=== PATIENT | female | born 1955 | race Caucasian/White ===

== ENCOUNTER 2017-08-28 13:40 | Emergency (ER) | payer MEDICARE, BC ==
[~2017-08-28] VITALS: Ht 162.6 cm; Wt 72.0 kg
[2017-08-28 13:41] VITALS: BP 161/71; PULSE 91; RESP 16; TEMP 98.2; O2SAT 98
[2017-08-28] MEDS ORDERED: KETOROLAC TROMETHAMINE 60 MG/2 ML (IM) VIAL IM ONE (14:30)
[2017-08-28] MEDS ORDERED: SUBO8MIS SL (14:37)
[2017-08-28] MEDS ORDERED: ADDE10 PO (14:37)
[2017-08-28] MEDS ORDERED: [UNRECOGNIZED DRUG - OTHER] PO (14:37)
[2017-08-28] MEDS ORDERED: ALPR0.5T3 PO (14:37)
[2017-08-28] MEDS ORDERED: ADDE30XR PO (14:37)
[2017-08-28] MEDS ORDERED: VENL1CAP38 PO (14:37)
[2017-08-28] MEDS ORDERED: EZET10 PO (14:37)
[2017-08-28] MEDS ORDERED: [UNRECOGNIZED DRUG - CODE] PO (14:37)
--- NOTE | 2017-08-28 14:41 | PD ---
HPI Chief Complaint: Hip Injury Time Seen by Provider: 14:05 Travel History International Travel<30 days: No Contact w/Intl Traveler<30days: No Traveled to known affect area: No History of Present Illness HPI 62-year-old female here for evaluation of left hip pain. The patient states that on 08/24/17 the patient was lifting a heavy object and turned to the side. She immediately experienced left hip pain. She states that the pain has been ongoing and seems to be worsening. She denies direct trauma. She has been taking Advil with only mild relief of symptoms. She has history of Percocet/ opioid abuse and is currently on Suboxone for this. She denies bowel or bladder incontinence or retention. No back pain. No abdominal pain. She does have some paresthesias to her left anterior thigh. PFSH Past Medical History ADHD: Yes Anxiety: Yes Depression: Yes Cancer: Yes (breast ) Insomnia: Yes Past Surgical History Gynecologic Surgery: Yes Mastectomy: Yes Social History Alcohol Use: No Tobacco Use: Yes Substance Use: No Allergies-Medications (Allergen,Severity, Reaction): Coded Allergies: No Known Allergies (Unverified , 08/28/17) Reported Meds & Prescriptions Reported Meds & Active Scripts Active Reported Nuvigil (Armodafinil) 50 Mg Tab 100 Mg PO DAILY Adderall (Amphetamine-Dextroamphetamine) 10 Mg Tab 10 Mg PO DIRECTED Take 10 mg in the morning & 5 mg (1/2 tab) at noon. Adderall Xr 24 HR (Amphetamine/Dextroamphetamine) 30 Mg Cap 30 Mg PO TID Once daily in the morning. Alprazolam 0.5 Mg Tab 0.5 Mg PO HS PRN Suboxone Sublingual Film (Buprenorphine-Naloxone Sublingual Film) 8-2 Mg Film 1 Film SL BID Unique ID number required: [cholesteril med ] PO DAILY Zetia (Ezetimibe) 10 Mg Tab 10 Mg PO DAILY Effexor XR 24 HR (Venlafaxine HCl) 37.5 Mg Cap 37.5 Mg PO DAILY Review of Systems Except as stated in HPI: all other systems reviewed are Neg Physical Exam Narrative GENERAL: Well-developed, well-nourished, comfortable, no apparent distress. SKIN: Focused skin assessment warm/dry. No rash. HEAD: Atraumatic. Normocephalic. EYES: Pupils equal and round. No scleral icterus. No injection or drainage. ENT: No nasal bleeding or discharge. Mucous membranes pink and moist. NECK: Trachea midline. No JVD. CARDIOVASCULAR: Regular rate and rhythm. No murmur appreciated. Bilateral dorsalis pedis pulses are brisk and equal. RESPIRATORY: No accessory muscle use. Clear to auscultation. Breath sounds equal bilaterally. GASTROINTESTINAL: Abdomen soft, non-tender, nondistended. No hernias. MUSCULOSKELETAL: No obvious deformities. No clubbing. No cyanosis. No edema. No midline vertebral step-off or tenderness. There is moderate left anterior hip tenderness. No warmth or erythema. Bilateral lower extremities are without rotational deformities or shortening. Normal range of motion in bilateral lower extremities. All compartments in bilateral lower extremities are supple. NEUROLOGICAL: Awake and alert. No obvious cranial nerve deficits. Motor grossly within normal limits. Normal speech. Normal sensation in bilateral lower extremities. Great toe extension present bilaterally. PSYCHIATRIC: Appropriate mood and affect; insight and judgment normal. Data Data Last Documented VS Vital Signs Date Time Temp Pulse Resp B/P (MAP) Pulse Ox O2 Delivery O2 Flow Rate FiO2 08/28/17 13:41 98.2 91 16 161/71 (101) 98 Orders Orders Ketorolac Inj (Toradol Inj) (08/28/17 14:30) Hip, Uni(Ap&Lat) W Ap Pelvis (08/28/17 ) Ct Pelvis W/O Iv Contrast (08/28/17 ) [facility] Medical Decision Making Medical Screen Exam Complete: Yes Emergency Medical Condition: Yes Differential Diagnosis Groin strain, hip fracture, dislocation unlikely Narrative Course Vital signs reviewed. Left hip x-ray: CONCLUSION: Negative CT pelvis: CONCLUSION: Negative for fracture or joint effusion. Patient is resting comfortably. She was made aware of all findings. There are no signs of infection. She is stable for discharge home with outpatient follow- up with her primary care physician this week. She was advised on when to return to the emergency department patient verbalizes understanding and agreement with plan. Diagnosis Primary Impression: Strain of left inguinal muscle Qualified Codes: S39.013A - Strain of muscle, fascia and tendon of pelvis, initial encounter Referrals: Primary Care Physician 3 days Additional Instructions: Follow-up with your primary care physician this week. Return to the emergency department for worsening symptoms or any other concerns. Disposition: 01 DISCHARGE HOME Condition: Stable Obdulio Cheng MD Aug 28, 2017 14:41
--- NOTE | 2017-08-28 15:51 | RADRPT ---
EXAM DATE/TIME: 08/28/2017 15:22 [facility] COMPARISON: No previous studies available for comparison. INDICATIONS : Pain in left hip, no known trauma. MEDICAL HISTORY : None. SURGICAL HISTORY : None. ENCOUNTER: Initial ACUITY: 4 - 6 days PAIN SCORE: 10/10 LOCATION: Left hip and pelvis FINDINGS: Examination of the left hip was performed with AP Pelvis. The primary and secondary trabecular patte rn of the femoral neck is intact. The hip joint is of normal width without significant sclerosis or bony hypertrophy. The acetabulum is grossly intact. CONCLUSION: Negative Tee Alegria MD FACR on August 28, 2017 at 15:40 Board Certified Radiologist. This report was verified electronically.
--- NOTE | 2017-08-28 17:52 | RADRPT ---
EXAM DATE/TIME: 08/28/2017 17:21 [facility] COMPARISON: No previous studies available for comparison. INDICATIONS : Left hip pain for four days. ORAL CONTRAST: No oral contrast ingested. RADIATION DOSE: 10.95 CTDIvol (mGy) MEDICAL HISTORY : Carcinoma, breast. SURGICAL HISTORY : None. ENCOUNTER: Initial ACUITY: 1 day PAIN SCALE: 10/10 LOCATION: Left hip TECHNIQUE: Volumetric scanning of the pelvis was performed. Using automated exposure control and adjustment of the mA and/or kV according to patient size, radiation dose was kept as low as reasonably achievable t o obtain optimal diagnostic quality images. DICOM format image data is available electronically for review and comparison. FINDINGS: BOWEL/MESENTERY: The visualized small and large bowel demonstrate no acute abnormality. There is no free fluid. BLADDER: There is no wall thickening or mass. RETROPERITONEUM: There is no aneurysm or lymphadenopathy. REPRODUCTIVE: Within normal limits. INGUINAL: There is no lymphadenopathy or hernia. MUSCULOSKELETAL: Within normal limits for patient age. CONCLUSION: Negative for fracture or joint effusion. Tee Alegria MD FACR on August 28, 2017 at 17:49 Board Certified Radiologist. This report was verified electronically.
== END 2017-08-28 19:10 | disposition home or self-care (01) ==
LOC: NEPE 13:40
DX: S39.013A Strain of muscle, fascia and tendon of pelvis, initial encounter (principal); X50.0XXA Overexertion from strenuous movement or load, initial encounter; F90.9 Attention-deficit hyperactivity disorder, unspecified type; F32.9 Major depressive disorder, single episode, unspecified; F41.9 Anxiety disorder, unspecified; G47.00 Insomnia, unspecified; Z79.891 Long term (current) use of opiate analgesic; Z85.3 Personal history of malignant neoplasm of breast; Z72.0 Tobacco use
CPT/HCPCS: 72192; 73502; 96372; 99284; J1885

== ENCOUNTER 2017-11-08 07:38 | Inpatient (IN) | payer MEDICARE, BC ==
[~2017-11-08] VITALS: Ht 162.6 cm; Wt 79.7 kg
[2017-11-08] VITALS (11 sets, daily range): BP systolic 115–168; BP diastolic 58–81; PULSE 72–98; RESP 16–28; TEMP 98.1–99.8; O2SAT 79–98
[~2017-11-08 07:38] MED LIST: ADDE10 PO; ADDE30XR PO; ALPR0.5T3 PO; EZET10 PO; SUBO8MIS SL; VENL1CAP38 PO; [UNRECOGNIZED DRUG - CODE] PO; [UNRECOGNIZED DRUG - OTHER] PO
--- NOTE | 2017-11-08 08:56 | PD ---
HPI Chief Complaint: Respiratory Symptoms Time Seen by Provider: 08:44 Travel History International Travel<30 days: No Contact w/Intl Traveler<30days: No Traveled to known affect area: No History of Present Illness HPI 62-year-old female complains of coughing and wheezing and shortness of breath. Patient is a smoker. Patient has history of reactive airway disease. Patient has albuterol nebulizer at home. Patient started having cough and congestion wheezing started 3 days ago. Patient denies any chest pain or fever. Patient denies abdominal pain. Patient denies any nausea vomiting diarrhea. Patient is on Suboxone and Xanax at home. Patient also on Adderall. Patient status post double mastectomy and with revisions subsequently. Patient is on chronic pain medication. PFSH Past Medical History ADHD: Yes Anxiety: Yes Depression: Yes Cancer: Yes (breast ) Diminished Hearing: No Insomnia: Yes Influenza Vaccination: Yes Past Surgical History Genitourinary Surgery: Yes (PROLASPED UTERUS,RECTUM 2008) Gynecologic Surgery: Yes Mastectomy: Yes (DOUBLE 2000) Social History Alcohol Use: No Tobacco Use: Yes (PPD ) Substance Use: No Allergies-Medications (Allergen,Severity, Reaction): Coded Allergies: No Known Allergies (Unverified , 11/08/17) Reported Meds & Prescriptions Reported Meds & Active Scripts Active Reported Nuvigil (Armodafinil) 50 Mg Tab 100 Mg PO DAILY Adderall (Amphetamine-Dextroamphetamine) 10 Mg Tab 10 Mg PO DIRECTED Take 10 mg in the morning & 5 mg (1/2 tab) at noon. Adderall Xr 24 HR (Amphetamine/Dextroamphetamine) 30 Mg Cap 30 Mg PO TID Once daily in the morning. Alprazolam 0.5 Mg Tab 0.5 Mg PO HS PRN Suboxone Sublingual Film (Buprenorphine-Naloxone Sublingual Film) 8-2 Mg Film 1 Film SL BID Unique ID number required: Zetia (Ezetimibe) 10 Mg Tab 10 Mg PO DAILY Effexor XR 24 HR (Venlafaxine HCl) 37.5 Mg Cap 37.5 Mg PO DAILY Review of Systems General / Constitutional: No: Fever Eyes: No: Visual changes HENT: No: Headaches Cardiovascular: No: Chest Pain or Discomfort Respiratory: Positive: Cough, Shortness of Breath, Wheezing Gastrointestinal: No: Abdominal Pain Genitourinary: No: Dysuria Musculoskeletal: No: Pain Skin: No Rash Neurologic: No: Weakness Psychiatric: No: Depression Endocrine: No: Polydipsia Hematologic/Lymphatic: No: Easy Bruising Physical Exam Narrative GENERAL: Well-nourished, well-developed patient. SKIN: Focused skin assessment warm/dry. HEAD: Normocephalic. EYES: No scleral icterus. No injection or drainage. NECK: Supple, trachea midline. No JVD or lymphadenopathy. CARDIOVASCULAR: Regular rate and rhythm without murmurs, gallops, or rubs. RESPIRATORY: Patient has moderate expiratory wheezes bilaterally. Few rhonchi at the bases. GASTROINTESTINAL: Abdomen soft, non-tender, nondistended. MUSCULOSKELETAL: No cyanosis, or edema. BACK: Nontender without obvious deformity. No CVA tenderness. Neurologic exam: Patient with mild lethargy however answer questions appropriately. Patient moves all extremity well. No obvious focal neurological deficit. Data Data Last Documented VS Vital Signs Date Time Temp Pulse Resp B/P (MAP) Pulse Ox O2 Delivery O2 Flow Rate FiO2 11/08/17 09:30 79 Room Air 11/08/17 09:00 4.00 11/08/17 08:40 99 26 11/08/17 08:35 99.5 Orders Orders Complete Blood Count With Diff (11/08/17 08:50) Comprehensive Metabolic Panel (11/08/17 08:50) Urinalysis - C+S If Indicated (11/08/17 08:50) Influenzae A/B Antigen (11/08/17 08:50) Blood Culture (11/08/17 08:50) Iv Access Insert/Monitor (11/08/17 08:50) Electrocardiogram (11/08/17 08:50) Ecg Monitoring (11/08/17 08:50) Oximetry (11/08/17 08:50) Oxygen Administration (11/08/17 08:50) Chest, Single Ap (11/08/17 08:50) Sodium Chloride 0.9% Flush (Ns Flush) (11/08/17 09:00) Methylprednisolone So Succ Inj (Solumedr (11/08/17 09:00) Albuterol-Ipratropium Neb (Duoneb Neb) (11/08/17 09:00) Labs Laboratory Tests Test 11/08/17 09:17 11/08/17 09:30 White Blood Count 10.9 TH/MM3 Red Blood Count 4.30 MIL/MM3 Hemoglobin 13.1 GM/DL Hematocrit 38.1 % Mean Corpuscular Volume 88.7 FL Mean Corpuscular Hemoglobin 30.4 PG Mean Corpuscular Hemoglobin Concent 34.3 % Red Cell Distribution Width 13.4 % Platelet Count 300 TH/MM3 Mean Platelet Volume 7.3 FL Neutrophils (%) (Auto) 77.9 % Lymphocytes (%) (Auto) 8.8 % Monocytes (%) (Auto) 12.5 % Eosinophils (%) (Auto) 0.7 % Basophils (%) (Auto) 0.1 % Neutrophils # (Auto) 8.4 TH/MM3 Lymphocytes # (Auto) 1.0 TH/MM3 Monocytes # (Auto) 1.4 TH/MM3 Eosinophils # (Auto) 0.1 TH/MM3 Basophils # (Auto) 0.0 TH/MM3 CBC Comment DIFF FINAL Differential Comment Blood Urea Nitrogen 7 MG/DL Creatinine 0.56 MG/DL Random Glucose 119 MG/DL Total Protein 7.7 GM/DL Albumin 2.6 GM/DL Calcium Level 9.3 MG/DL Alkaline Phosphatase 174 U/L Aspartate Amino Transf (AST/SGOT) 22 U/L Alanine Aminotransferase (ALT/SGPT) 27 U/L Total Bilirubin 0.4 MG/DL Sodium Level 134 MEQ/L Potassium Level 3.3 MEQ/L Chloride Level 93 MEQ/L Carbon Dioxide Level 32.0 MEQ/L Anion Gap 9 MEQ/L Estimat Glomerular Filtration Rate 110 ML/MIN Urine Color YELLOW Urine Turbidity HAZY Urine pH 6.5 Urine Specific Spencer 1.033 Urine Protein 300 mg/dL Urine Glucose (UA) NEG mg/dL Urine Ketones 40 mg/dL Urine Occult Blood MOD Urine Nitrite NEG Urine Bilirubin NEG Urine Urobilinogen 4.0 MG/DL Urine Leukocyte Esterase NEG Urine RBC 9 /hpf Urine WBC 7 /hpf Urine Squamous Epithelial Cells 5 /hpf Urine Bacteria RARE /hpf Urine Hyaline Casts 33 /lpf Urine Mucus MANY /lpf Microscopic Urinalysis Comment CULT NOT INDICATED MDM Medical Decision Making Medical Screen Exam Complete: Yes Emergency Medical Condition: Yes Interpretation(s) 10:19 AM. Last Impressions Chest X-Ray 11/08/17 0850 Signed Impressions: Service Date/Time: Wednesday, November 08, 2017 08:57 - CONCLUSION: Right middle lobe airspace disease suspected. Robby Prater MD 10:19 AM. CBC WBC 10.9. Hemoglobin 13.1 hematocrit 30.1. 77 neutrophil. Sodium 134. Potassium 3.3. Chloride 93. Alkaline phosphatase 174. UA positive for WBC RBC and bacteria. Differential Diagnosis Differential diagnosis including acute exacerbation of reactive airway disease, URI, bronchitis, pneumonia, PE, pneumothorax. Narrative Course 62-year-old female complained of coughing wheezing and shortness of breath. Patient is a smoker. History of reactive airway disease. Albuterol with Atrovent unit dose treatment 3. Solu-Medrol 125 mg IV. Rocephin 1 g IV. Zithromax 500 mg IV. Diagnosis Primary Impression: Pneumonia Qualified Codes: J18.1 - Lobar pneumonia, unspecified organism Additional Impression: Reactive airway disease with acute exacerbation Qualified Codes: J45.51 - Severe persistent asthma with (acute) exacerbation Admitting Information Admitting Physician Requests: Admit Brian Worrell MD Nov 08, 2017 08:56
[2017-11-08] MEDS ORDERED: methylPREDNISolone SOD SUCC 125 MG/2 ML VIAL IV PUSH ONE (09:00)
[2017-11-08] MEDS: RESP: ALBUTEROL 2.5 MG/IPRATROPIUM 0.5 MG NEB (SCH) INH ×4 (09:00→20:23)
[2017-11-08] MEDS ORDERED: SODIUM CHLORIDE 0.9% FLUSH 10 ML FLUSH IVF PRN (09:00)
--- NOTE | 2017-11-08 09:14 | RADRPT ---
EXAM DATE/TIME: 11/08/2017 08:57 [facility] COMPARISON: No previous studies available for comparison. INDICATIONS : Cough, congestion and shortness of breath. MEDICAL HISTORY : Carcinoma, breast. SURGICAL HISTORY : Mastectomy, bilateral. ENCOUNTER: Initial ACUITY: 4 - 6 days PAIN SCORE: 0/10 LOCATION: Bilateral chest FINDINGS: Mild hyperinflation. There is patchy density in the right lung base medially partially silhouetting t he right heart border suspect for right middle lobe airspace disease. Left lung is clear. Osseous str uctures are intact. CONCLUSION: Right middle lobe airspace disease suspected. Robby Prater MD on November 08, 2017 at 9:11 Board Certified Radiologist. This report was verified electronically.
[2017-11-08 09:51] LABS: AUTOMATED NEUTROPHIL # 8.4 TH/MM3 (1.8-7.7); BASOPHIL % 0.1 % (0.0-2.0); EOSINOPHIL # 0.1 TH/MM3 (0-0.4); EOSINOPHIL % 0.7 % (0.0-4.0); HEMATOCRIT 38.1 % (35.0-46.0); HEMOGLOBIN 13.1 GM/DL (11.6-15.3); LYMPH % 8.8 % (9.0-44.0); MEAN CELL VOLUME 88.7 FL (80.0-100.0); MEAN CORPUSCULAR HEMOGLOBIN 30.4 PG (27.0-34.0); MEAN CORPUSCULAR HGB CONC 34.3 % (32.0-36.0); MEAN PLATELET VOLUME 7.3 FL (7.0-11.0); MONO % 12.5 % (0.0-8.0); MONOCYTE # 1.4 TH/MM3 (0-0.9); NEUT % 77.9 % (16.0-70.0); PLATELET COUNT 300 TH/MM3 (150-450); RED CELL DISTRIBUTION WIDTH 13.4 % (11.6-17.2); WHITE BLOOD COUNT 10.9 TH/MM3 (4.0-11.0)
[2017-11-08 10:11] LABS: ALKALINE PHOSPHATASE 174 U/L (45-117); TOTAL BILIRUBIN ADULT 0.4 MG/DL (0.2-1.0); TOTAL PROTEIN 7.7 GM/DL (6.4-8.2)
[2017-11-08 10:12] LABS: BACTERIA, URINE RARE /hpf; BLOOD, URINE MOD (NEG); GLUCOSE,URINE NEG (NEG); HYALINE CAST, URINE 33 /lpf (RARE); KETONE, URINE 40 mg/dL (NEG); MUCUS URINE MANY /lpf (OCC); NITRITE,URINE NEG (NEG); PH, URINE 6.5 (5.0-8.5); SQUAMOUS EPITHELIAL CELL URINE 5 /hpf (0-5); URINE COLOR YELLOW (YELLW/STRAW); URINE LEUKOCYTE ESTERASE NEG (NEG)
[2017-11-08 10:14] LABS: BILIRUBIN, URINE NEG (NEG)
[2017-11-08 10:18] LABS: ALBUMIN 2.6 GM/DL (3.4-5.0); ALT (GPT) 27 U/L (10-53); AST (GOT) 22 U/L (15-37); BLOOD UREA NITROGEN 7 MG/DL (7-18); CALCIUM 9.3 MG/DL (8.5-10.1); CHLORIDE 93 MEQ/L (98-107); CREATININE 0.56 MG/DL (0.50-1.00); GLOMERULAR FILTRATION RATE 110 ML/MIN (>89); GLUCOSE,RANDOM 119 MG/DL (74-106); SODIUM (NA) 134 MEQ/L (136-145)
[2017-11-08] MEDS ORDERED: ACETAMINOPHEN 325 MG TAB PO PRN (11:15)
[2017-11-08] MEDS ORDERED: guaiFENesin/DEXTROMETHORPHAN 200 MG/20 MG/10 ML CUP PO PRN (11:15)
[2017-11-08] MEDS ORDERED: RESP: ALBUTEROL 2.5 MG/IPRATROPIUM 0.5 MG NEB (PRN) INH (11:15)
[2017-11-08] MEDS ORDERED: SODIUM CHLORIDE 0.9% FLUSH 10 ML FLUSH IV FLUSH PRN (11:15)
[2017-11-08] MEDS ORDERED: ONDANSETRON HCL 4 MG/2 ML VIAL IV PUSH PRN (11:15)
[2017-11-08] MEDS ORDERED: POTASSIUM CHLORIDE 25 MEQ EFFERVESCENT TAB PO ONE (11:15)
--- NOTE | 2017-11-08 13:08 | HHI.HP ---
[facility] Noel Becerra MD Admission Diagnosis Pneumonia. Acute exacerbation reactive airway disease. Hypoxemia. Diagnoses: Chief Complaint: Shortness of breath Travel History International Travel<30 Days: No Contact w/Intl Traveler <30 Da: No Traveled to Known Affected Are: No History of Present Illness This is a 62-year-old female with no comorbidities other than history of breast cancer in remission and possible COPD who presented with shortness of breath. Patient has been in her usual state of health until 3 days ago when she started having a nonproductive cough associated with wheezing and mild shortness of breath. Shortness of breath became worse hence the patient decided to go to the emergency department today. Patient denies any fever, chills, nausea, vomiting, headache, chest pain, leg edema or palpitations. Of note, she has been visiting her grandson who has been diagnosed with a cough but was not placed on any antibiotic about 1 week ago. Patient has been smoking 3 partners of a pack for the last 45 years but has stopped 3 months ago. She has never been diagnosed with COPD though patient was placed on nebulizer as needed. She used to give herself nebulization treatments but she used up all her Nebules 2 days ago. Review of Systems ROS Limitations: Other (All other pertinent systems were reviewed and are negative.) Past Family Social History Past Medical History History of breast cancer status post mastectomy ? COPD Past Surgical History Bilateral radical mastectomy Surgery for uterine and rectal prolapse Reported Medications Nuvigil (Armodafinil) 50 Mg Tab 100 Mg PO DAILY Adderall (Amphetamine-Dextroamphetamine) 10 Mg Tab 10 Mg PO DIRECTED Take 10 mg in the morning & 5 mg (1/2 tab) at noon. Adderall Xr 24 HR (Amphetamine/Dextroamphetamine) 30 Mg Cap 30 Mg PO TID Once daily in the morning. Alprazolam 0.5 Mg Tab 0.5 Mg PO HS PRN Suboxone Sublingual Film (Buprenorphine-Naloxone Sublingual Film) 8-2 Mg Film 1 Film SL BID Unique ID number required: Zetia (Ezetimibe) 10 Mg Tab 10 Mg PO DAILY Effexor XR 24 HR (Venlafaxine HCl) 37.5 Mg Cap 37.5 Mg PO DAILY Allergies: Coded Allergies: No Known Allergies (Unverified , 11/08/17) Family History Prominent history of breast cancer in the family Social History Smokes three quarters of a pack a day for the last 45 years, stopped 3 months ago: no significant alcohol use Physical Exam Vital Signs Vital Signs Date Time Temp Pulse Resp B/P (MAP) Pulse Ox O2 Delivery O2 Flow Rate FiO2 11/08/17 11:46 11/08/17 10:27 93 20 129/58 (81) 94 Nasal Cannula 3.00 11/08/17 09:30 79 Room Air 11/08/17 09:00 98 Nasal Cannula 4.00 11/08/17 08:40 99 26 93 Nasal Cannula 3.00 11/08/17 08:35 92 Nasal Cannula 3.00 11/08/17 08:35 99.5 77 28 153/69 (97) 80 Room Air 11/08/17 07:54 99.8 98 18 168/81 (110) 94 Physical Exam Not in distress, well-nourished, coughing. PERRL, pink conjunctiva without injection, anicteric Nose without bleeding Supple neck Normal rate and regular rhythm, no murmurs gallops or rubs appreciated. Occasional wheezing, crackles in the right base and rhonchi bilaterally. Normal bowel sounds, soft, non-tender, nondistended, no guarding. Extremities without clubbing, cyanosis, or edema. No rash of generalized distribution. Skin is warm and dry. AAO x3, no cranial nerve deficits, moves all 4 extremities, no focal neurologic deficits Laboratory Laboratory Tests Test 11/08/17 09:17 11/08/17 09:30 White Blood Count 10.9 Red Blood Count 4.30 Hemoglobin 13.1 Hematocrit 38.1 Mean Corpuscular Volume 88.7 Mean Corpuscular Hemoglobin 30.4 Mean Corpuscular Hemoglobin Concent 34.3 Red Cell Distribution Width 13.4 Platelet Count 300 Mean Platelet Volume 7.3 Neutrophils (%) (Auto) 77.9 Lymphocytes (%) (Auto) 8.8 Monocytes (%) (Auto) 12.5 Eosinophils (%) (Auto) 0.7 Basophils (%) (Auto) 0.1 Neutrophils # (Auto) 8.4 Lymphocytes # (Auto) 1.0 Monocytes # (Auto) 1.4 Eosinophils # (Auto) 0.1 Basophils # (Auto) 0.0 CBC Comment DIFF FINAL Differential Comment Blood Urea Nitrogen 7 Creatinine 0.56 Random Glucose 119 Total Protein 7.7 Albumin 2.6 Calcium Level 9.3 Alkaline Phosphatase 174 Aspartate Amino Transf (AST/SGOT) 22 Alanine Aminotransferase (ALT/SGPT) 27 Total Bilirubin 0.4 Sodium Level 134 Potassium Level 3.3 Chloride Level 93 Carbon Dioxide Level 32.0 Anion Gap 9 Estimat Glomerular Filtration Rate 110 Urine Color YELLOW Urine Turbidity HAZY Urine pH 6.5 Urine Specific Lyndon 1.033 Urine Protein 300 Urine Glucose (UA) NEG Urine Ketones 40 Urine Occult Blood MOD Urine Nitrite NEG Urine Bilirubin NEG Urine Urobilinogen 4.0 Urine Leukocyte Esterase NEG Urine RBC 9 Urine WBC 7 Urine Squamous Epithelial Cells 5 Urine Bacteria RARE Urine Hyaline Casts 33 Urine Mucus MANY Microscopic Urinalysis Comment CULT NOT INDICATED Date/Time Source Procedure Growth Status 11/08/17 09:19 Blood Peripheral Aerobic Blood Culture Pending Received 11/08/17 09:19 Blood Peripheral Anaerobic Blood Culture Pending Received 11/08/17 08:50 Nasal Washing Influenza Types A,B Antigen (SHELBI) - Final NEGATIVE FOR FLU A AND B ANTIGEN.... Complete Result Diagram: 11/08/1717 11/08/17 0917 Imaging Last Impressions Chest X-Ray 11/08/17 0850 Signed Impressions: Service Date/Time: Wednesday, November 08, 2017 08:57 - CONCLUSION: Right middle lobe airspace disease suspected. MD Chelsy Pateli VTE Risk Assessment Caprini VTE Risk Assessment: Mod/High Risk (score >= 2) Caprini Risk Assessment Model Point Value = 1 Point Value = 2 Point Value = 3 Point Value = 5 Age 41-60 Minor surgery BMI > 25 kg/m2 Swollen legs Varicose veins or History of unexplained or recurrent spontaneous Oral contraceptives or hormone replacement Sepsis (< 1 month) Serious lung disease, including pneumonia (< 1 month) Abnormal pulmonary function Acute myocardial infarction Congestive heart failure (< 1 month) History of inflammatory bowel disease Medical patient at bed rest Age 61-74 Arthroscopic surgery Major open surgery (> 45 min) Laparoscopic surgery (> 45 min) Malignancy Confined to bed (> 72 hours) Immobilizing plaster cast Central venous access Age >= 75 History of VTE Family history of VTE Factor V Leiden Prothrombin [id number] Lupus anticoagulant Anticardiolipin antibodies Elevated serum homocysteine Heparin-induced thrombocytopenia Other congenital or acquired thrombophilia Stroke (< 1 month) Elective arthroplasty Hip, pelvis, or leg fracture Acute spinal cord injury (< 1 month) Prophylaxis Regimen Total Risk Factor Score Risk Level Prophylaxis Regimen 0-1 Low Early ambulation 2 Moderate Order ONE of the following: *Sequential Compression Device (SCD) *Heparin 5000 units SQ BID 3-4 Higher Order ONE of the following medications: *Heparin 5000 units SQ TID *Enoxaparin/Lovenox 40 mg SQ daily (WT < 150 kg, CrCl > 30 mL/min) *Enoxaparin/Lovenox 30 mg SQ daily (WT < 150 kg, CrCl > 10-29 mL/min) *Enoxaparin/Lovenox 30 mg SQ BID (WT < 150 kg, CrCl > 30 mL/min) AND/OR *Sequential Compression Device (SCD) 5 or more Highest Order ONE of the following medications: *Heparin 5000 units SQ TID (Preferred with Epidurals) *Enoxaparin/Lovenox 40 mg SQ daily (WT < 150 kg, CrCl > 30 mL/min) *Enoxaparin/Lovenox 30 mg SQ daily (WT < 150 kg, CrCl > 10-29 mL/min) *Enoxaparin/Lovenox 30 mg SQ BID (WT < 150 kg, CrCl > 30 mL/min) AND *Sequential Compression Device (SCD) Assessment and Plan Assessment and Plan This is a 62-year-old female with questionable history of COPD presenting with shortness of breath, chest x-ray shows right middle lobe infiltrates. Acute hypoxic respiratory failure secondary to community-acquired pneumonia and COPD exacerbation-no leukocytosis, patient has a new cough, which shortness of breath and hypoxia, requiring oxygen, chest x-ray personally reviewed showed right middle lobe infiltrate likely secondary to pneumonia. Start Levaquin, check sputum culture, follow-up blood culture, rapid flu negative, start duo nebs around the clock and as needed. Acute COPD exacerbation-start steroids, tapered quickly. DuoNeb's as above. Oxygen supplementation, antitussives Mild dehydration-will give 1 L of normal saline Hypokalemia-will give 1 dose of potassium supplementation DVT prophylaxis: Lovenox Physician Certification 2 Midnight Certification Type: Admission for Inpatient Services Order for Inpatient Services The services are ordered in accordance with Medicare regulations or non- Medicare payer requirements, as applicable. In the case of services not specified as inpatient-only, they are appropriately provided as inpatient services in accordance with the 2-midnight benchmark. Estimated LOS (days): 2 days is the estimated time the patient will need to remain in the hospital, assuming treatment plan goals are met and no additional complications. Post-Hospital Plan: Home Al Reese MD Nov 08, 2017 13:08
[2017-11-08] MEDS: LEVOFLOXACIN 750 MG PREMIX INJ 150 ML IV SCH (13:52)
[2017-11-08] MEDS: methylPREDNISolone SOD SUCC 40 MG/1 ML VIAL IV PUSH SCH ×3 (13:52→23:23)
[2017-11-08] MEDS: SODIUM CHLOR 0.9% 1000 ML INJ 1,000 ML IV SCH ×2 (13:52→23:10)
[2017-11-08] MEDS: ENOXAPARIN SODIUM 30 MG/0.3 ML SYRINGE SQ SCH (13:53)
--- NOTE | 2017-11-08 14:10 | EKG ---
Date Performed: 11/08/2017 Time Performed: 09:36:40 PTAGE: 62 years EKG: Sinus rhythm WITH SINUS ARRHYTHMIA POSSIBLE LEFT ATRIAL ENLARGEMENT BORDERLINE ECG NO PREVIOUS TRACING DOCTOR: Yanick Carrillo Interpretating Date/Time 11/08/2017 14:09:21
[2017-11-08] MEDS ORDERED: MONT10TA4 PO (18:03)
[2017-11-08] MEDS: SODIUM CHLORIDE 0.9% FLUSH 10 ML FLUSH IV FLUSH SCH (20:23)
[2017-11-08] MEDS ORDERED: BUPRENORPHINE NALOXONE SL SCH (21:00)
[2017-11-08] MEDS: ALPRAZolam 0.5 MG TAB PO PRN (23:21)
[2017-11-09] VITALS (13 sets, daily range): BP systolic 98–142; BP diastolic 56–82; PULSE 74–93; RESP 16–20; TEMP 97.7–98.5; O2SAT 92–97
[2017-11-09] MEDS: RESP: ALBUTEROL 2.5 MG/IPRATROPIUM 0.5 MG NEB (SCH) INH ×4 (03:06→20:39)
[2017-11-09] MEDS: SODIUM CHLOR 0.9% 1000 ML INJ 1,000 ML IV SCH ×2 (05:37→05:42)
[2017-11-09] MEDS: methylPREDNISolone SOD SUCC 40 MG/1 ML VIAL IV PUSH SCH ×3 (05:37→18:24)
[2017-11-09 07:15] LABS: AUTOMATED NEUTROPHIL # 10.5 TH/MM3 (1.8-7.7); BASOPHIL % 0.3 % (0.0-2.0); HEMATOCRIT 37.1 % (35.0-46.0); HEMOGLOBIN 12.6 GM/DL (11.6-15.3); LYMPH % 6.8 % (9.0-44.0); LYMPHOCYTE # 0.8 TH/MM3 (1.0-4.8); MEAN CELL VOLUME 88.3 FL (80.0-100.0); MEAN CORPUSCULAR HEMOGLOBIN 30.1 PG (27.0-34.0); MONO % 5.1 % (0.0-8.0); MONOCYTE # 0.6 TH/MM3 (0-0.9); NEUT % 87.8 % (16.0-70.0); PLATELET COUNT 306 TH/MM3 (150-450); RED CELL DISTRIBUTION WIDTH 13.3 % (11.6-17.2); WHITE BLOOD COUNT 11.9 TH/MM3 (4.0-11.0)
[2017-11-09 07:53] LABS: BICARBONATE 31.7 MEQ/L (21.0-32.0); CALCIUM 9.4 MG/DL (8.5-10.1); CREATININE 0.6 MG/DL (0.50-1.00)
[2017-11-09 07:54] LABS: BANDS 19 % (0-6); LYMPHOCYTES 6 % (9-44); MONOCYTES 5 % (0-8); MYELOCYTES 2 % (0-0); NEUTROPHIL # MANUAL DIFF 10.6 TH/MM3 (1.8-7.7); POLYS (SEG NEUTROPHILS) 68 % (16-70); TOXIC GRANULATION 2+ (NORMAL); TOXIC VACUOLATION PRESENT (NONE SEEN)
[2017-11-09] MEDS ORDERED: ARMODAFINIL 100 MG PO SCH (09:00)
[2017-11-09] MEDS: SODIUM CHLORIDE 0.9% FLUSH 10 ML FLUSH IV FLUSH SCH ×2 (09:00→20:37)
[2017-11-09] MEDS ORDERED: MAGNESIUM SULFATE 2 GM/NS 100 ML IV ONE ×2 (09:00)
[2017-11-09] MEDS: DEXTROAMPHETAMINE/AMPHETAMINE XR 30 MG CAP PO SCH ×3 (09:01→18:24)
[2017-11-09] MEDS: DEXTROAMPHETAMINE/AMPHETAMINE 10 MG TAB PO SCH (09:01)
[2017-11-09] MEDS: VENLAFAXINE HCL XR 37.5 MG CAP PO SCH (09:02)
[2017-11-09] MEDS: EZETIMIBE 10 MG TAB PO SCH (09:02)
[2017-11-09] MEDS: MONTELUKAST SODIUM 10 MG TAB PO SCH (09:02)
[2017-11-09] MEDS: AZITHROMYCIN 250 MG TAB PO SCH (09:02)
[2017-11-09] MEDS ORDERED: POTASSIUM CHLORIDE 20 MEQ CONTROLLED RELEASE TAB PO ONE (09:45)
[2017-11-09] MEDS ORDERED: LIVA4TAB PO (10:53)
--- NOTE | 2017-11-09 12:24 | HHI.PR ---
Subjective Remarks This is a 62-year-old female with no comorbidities other than history of breast cancer in remission and possible COPD who presented with shortness of breath. Patient has been in her usual state of health until 3 days ago when she started having a nonproductive cough associated with wheezing and mild shortness of breath. Shortness of breath became worse hence the patient decided to go to the emergency department today. Patient denies any fever, chills, nausea, vomiting, headache, chest pain, leg edema or palpitations. Of note, she has been visiting her grandson who has been diagnosed with a cough but was not placed on any antibiotic about 1 week ago. Patient has been smoking 3 partners of a pack for the last 45 years but has stopped 3 months ago. She has never been diagnosed with COPD though patient was placed on nebulizer as needed. She used to give herself nebulization treatments but she used up all her Nebules 2 days ago. 11-09 PATIENT STATES SHE IS BREATHING A LITTLE BETTER WANTS HHC AT [place] INCENTIVE SPIROMETRY AND MUCINEX AND DUONEBS AND STEROIDS PT AND OT TO EVAL AND TREAT AM LABS Objective Vitals Vital Signs Date Time Temp Pulse Resp B/P (MAP) Pulse Ox O2 Delivery O2 Flow Rate FiO2 11/09/17 08:05 98.2 79 20 135/77 (96) 95 11/09/17 08:00 Nasal Cannula 3.00 11/09/17 07:55 97 Nasal Cannula 3.00 11/09/17 04:00 75 11/09/17 03:53 98.5 76 16 116/66 (83) 97 11/09/17 00:57 98.5 75 18 129/76 (93) 92 11/09/17 00:01 74 11/08/17 21:31 98.4 78 18 117/63 (81) 92 11/08/17 20:23 92 Nasal Cannula 3.00 11/08/17 20:00 72 11/08/17 19:30 Nasal Cannula 3.00 11/08/17 16:14 92 Nasal Cannula 3.00 11/08/17 16:00 73 11/08/17 16:00 Nasal Cannula 3.00 11/08/17 16:00 98.1 78 16 126/66 (86) 94 11/08/17 14:06 98.4 80 16 115/61 (79) 92 I/O 11/08/17 11/08/17 11/08/17 11/09/17 11/09/17 11/09/17 07:00 15:00 23:00 07:00 15:00 23:00 Intake Total 1000 ml Output Total 450 ml Balance 550 ml Intake IV Total 1000 ml Output Urine Total 450 ml Result Diagram: 11/09/17 0650 11/09/17 0650 Other Results Laboratory Tests Test 11/08/17 09:17 11/08/17 09:30 11/09/17 06:50 White Blood Count 10.9 TH/MM3 11.9 TH/MM3 Red Blood Count 4.30 MIL/MM3 4.20 MIL/MM3 Hemoglobin 13.1 GM/DL 12.6 GM/DL Hematocrit 38.1 % 37.1 % Mean Corpuscular Volume 88.7 FL 88.3 FL Mean Corpuscular Hemoglobin 30.4 PG 30.1 PG Mean Corpuscular Hemoglobin Concent 34.3 % 34.0 % Red Cell Distribution Width 13.4 % 13.3 % Platelet Count 300 TH/MM3 306 TH/MM3 Mean Platelet Volume 7.3 FL 7.0 FL Neutrophils (%) (Auto) 77.9 % 87.8 % Lymphocytes (%) (Auto) 8.8 % 6.8 % Monocytes (%) (Auto) 12.5 % 5.1 % Eosinophils (%) (Auto) 0.7 % 0.0 % Basophils (%) (Auto) 0.1 % 0.3 % Neutrophils # (Auto) 8.4 TH/MM3 10.5 TH/MM3 Lymphocytes # (Auto) 1.0 TH/MM3 0.8 TH/MM3 Monocytes # (Auto) 1.4 TH/MM3 0.6 TH/MM3 Eosinophils # (Auto) 0.1 TH/MM3 0.0 TH/MM3 Basophils # (Auto) 0.0 TH/MM3 0.0 TH/MM3 CBC Comment DIFF FINAL AUTO DIFF Differential Comment FINAL DIFF MANUAL Blood Urea Nitrogen 7 MG/DL 13 MG/DL Creatinine 0.56 MG/DL 0.60 MG/DL Random Glucose 119 MG/DL 163 MG/DL Total Protein 7.7 GM/DL Albumin 2.6 GM/DL Calcium Level 9.3 MG/DL 9.4 MG/DL Alkaline Phosphatase 174 U/L Aspartate Amino Transf (AST/SGOT) 22 U/L Alanine Aminotransferase (ALT/SGPT) 27 U/L Total Bilirubin 0.4 MG/DL Sodium Level 134 MEQ/L 138 MEQ/L Potassium Level 3.3 MEQ/L 2.9 MEQ/L Chloride Level 93 MEQ/L 98 MEQ/L Carbon Dioxide Level 32.0 MEQ/L 31.7 MEQ/L Anion Gap 9 MEQ/L 8 MEQ/L Estimat Glomerular Filtration Rate 110 ML/MIN 102 ML/MIN Urine Color YELLOW Urine Turbidity HAZY Urine pH 6.5 Urine Specific [place] 1.033 Urine Protein 300 mg/dL Urine Glucose (UA) NEG mg/dL Urine Ketones 40 mg/dL Urine Occult Blood MOD Urine Nitrite NEG Urine Bilirubin NEG Urine Urobilinogen 4.0 MG/DL Urine Leukocyte Esterase NEG Urine RBC 9 /hpf Urine WBC 7 /hpf Urine Squamous Epithelial Cells 5 /hpf Urine Bacteria RARE /hpf Urine Hyaline Casts 33 /lpf Urine Mucus MANY /lpf Microscopic Urinalysis Comment CULT NOT INDICATED Differential Total Cells Counted 100 Neutrophils % (Manual) 68 % Band Neutrophils % 19 % Lymphocytes % 6 % Monocytes % 5 % Neutrophils # (Manual) 10.6 TH/MM3 Myelocytes 2 % Atypical Lymphocytes % Toxic Granulation 2+ Toxic Vacuolation PRESENT Platelet Estimate NORMAL Platelet Morphology Comment NORMAL Imaging Last Impressions Chest X-Ray 11/08/17 0850 Signed Impressions: Service Date/Time: Wednesday, November 08, 2017 08:57 - CONCLUSION: Right middle lobe airspace disease suspected. Robby Prater MD Objective Remarks GENERAL: Awake alert and oriented 3 talkative and cooperative has some cough and congestion SKIN: Warm and dry. HEAD: Atraumatic. Normocephalic. EYES: Pupils equal and round. No scleral icterus. No injection or drainage. Extraocular muscles intact ENT: No nasal bleeding or discharge. Mucous membranes pink and moist. Tongue is midline NECK: Trachea midline. No JVD. Supple S1-S2 no S3 or S4 CARDIOVASCULAR: Regular rate and rhythm. RESPIRATORY: No accessory muscle use. Clear to auscultation. Breath sounds equal bilaterally. Rhonchi and wheezes bilaterally GASTROINTESTINAL: Abdomen soft, non-tender, nondistended. Hepatic and splenic margins not palpable. MUSCULOSKELETAL: Extremities without clubbing, cyanosis, or edema. No obvious deformities. NEUROLOGICAL: Awake and alert. No obvious cranial nerve deficits. Motor grossly within normal limits. 4 out of 5 muscle strength in the arms and legs. Normal speech. PSYCHIATRIC: Appropriate mood and affect; insight and judgment normal. Procedures NONE Medications and IVs Current Medications Sodium Chloride (NS Flush) 2 ml UNSCH PRN IVF FLUSH AFTER USING IV ACCESS Last administered on 11/08/17at 09:15; Start 11/08/17 at 09:00; Stop 11/09/17 at 09:33 ; Status DC Methylprednisolone Sodium Succinate (SoluMEDROL INJ) 125 mg ONCE ONCE IV PUSH Last administered on 11/08/17at 09:15; Start 11/08/17 at 09:00; Stop 11/08/17 at 09:01; Status DC Albuterol/ Ipratropium (Duoneb Neb) 1 ampule Q15M INH Last administered on 11/08at 09:31; Start 11/08/17 at 09:00; Stop 11/08/17 at 09:31; Status DC Sodium Chloride (NS Flush) 2 ml UNSCH PRN IV FLUSH FLUSH AFTER USING IV ACCESS ; Start 11/08/17 at 11:15 Sodium Chloride (NS Flush) 2 ml BID IV FLUSH ; Start 11/08/17 at 21:00 Azithromycin (Zithromax) 500 mg DAILY PO Last administered on 11/09/17at 09:02; Start 11/09/17 at 09:00 Levofloxacin/ Dextrose 150 ml @ 100 mls/hr Q24H IV Last administered on at 13:52; Start 11/08/17 at 12:00 Acetaminophen (Tylenol) 650 mg Q4H PRN PO TEMPERATURE > 101 F; Start 11/08/17 at 11:15 Ondansetron HCl (Zofran Inj) 4 mg Q6H PRN IV PUSH NAUSEA; Start 11/08/17 at 11: 15 Albuterol/ Ipratropium (Duoneb Neb) 1 ampule Q6HR NEB INH Last administered on 11/09/17at 07:54; Start 11/08/17 at 16:00 Albuterol/ Ipratropium (Duoneb Neb) 1 ampule Q4HR NEB PRN INH SHORTNESS OF BREATH; Start 11/08/17 at 11:15 Guaifenesin/ Dextromethorphan (Robitussin Dm 200-20 Mg/10 ml Liq) 10 ml Q4H PRN PO COUGH; Start 11/08/17 at 11:15 Enoxaparin Sodium (Lovenox Inj) 30 mg Q24H SQ Last administered on 11/08/17at 13 :53; Start 11/08/17 at 12:00 Sodium Chloride 1,000 ml @ 84 mls/hr [id number] IV Last administered on at 05:42; Start 11/08/17 at 11:15 Potassium Bicarb/ Potassium Chloride (K-Lyte Cl Eff) 50 meq ONCE ONCE PO Last administered on 11/08/17at 13:53; Start 11/08/17 at 11:15; Stop 11/08/17 at 11:25; Status DC Methylprednisolone Sodium Succinate (SoluMEDROL INJ) 40 mg Q6HR IV PUSH Last administered on 11/09/17at 05:37; Start 11/08/17 at 12:00 Alprazolam (Xanax) 0.5 mg HS PRN PO ANXIETY Last administered on 11/08/17at 23: 21; Start 11/08/17 at 18:30 Amphetamine/ Dextroamphetamine (Adderall) 10 mg DAILY PO Last administered on at 09:01; Start 11/09/17 at 09:00 Amphetamine/ Dextroamphetamine (Adderall Xr) 30 mg TID PO Last administered on 11/09/17 09:01; Start 11/09/17 at 09:00 EZETIMIBE (Zetia) 10 mg DAILY PO Last administered on 11/09/17 09:02; Start at 09:00 Montelukast Sodium (Singulair) 10 mg DAILY PO Last administered on 11/09/17at 09 :02; Start 11/09/17 at 09:00 Venlafaxine HCl (Effexor Xr) 37.5 mg DAILY PO Last administered on 11/09/17at 09 :02; Start 11/09/17 at 09:00 Patient Own Medication 100 ea DAILY PO ; Start 11/09/17 at 09:00; Status Future Hold Patient Own Medication PT OWN MED: Buprenorphine-Naloxon... BID SL ; Start 11/08 at 21:00; Status Future Hold Amphetamine/ Dextroamphetamine (Adderall) 5 mg DAILY@1200 PO ; Start 11/09/17 at 12:00 Magnesium Sulfate 2 gm/Sodium Chloride 104 ml @ 52 mls/hr ONCE ONCE IV Last administered on 11/09/17at 09:03; Start 11/09/17 at 09:00; Stop 11/09/17 at 10:59 ; Status DC Potassium Chloride (KCl) 80 meq ONCE ONCE PO Last administered on 11/09/17at 10 :39; Start 11/09/17 at 09:45; Stop 11/09/17 at 09:46; Status DC A/P Assessment and Plan This is a 62-year-old female with questionable history of COPD presenting with shortness of breath, chest x-ray shows right middle lobe infiltrates. Acute hypoxic respiratory failure secondary to community-acquired pneumonia and COPD exacerbation-no leukocytosis, patient has a new cough, which shortness of breath and hypoxia, requiring oxygen, chest x-ray personally reviewed showed right middle lobe infiltrate likely secondary to pneumonia. Start Levaquin, check sputum culture, follow-up blood culture, rapid flu negative, start duo nebs around the clock and as needed. ADD ZITHROMAX AND MUCINEX AND STEROID AND INCENTIVE SPIROMETRY CONSULT PT AND OT Acute COPD exacerbation-start steroids, tapered quickly. DuoNeb's as above. Oxygen supplementation, antitussives Mild dehydration-will give 1 L of normal saline Hypokalemia-will give 1 dose of potassium supplementation - WILL GIVE MORE CHECK AM LABS DVT prophylaxis: Lovenox Discharge Planning PENDING BREATHING IMPROVEMENT Tee Pennington DO Nov 09, 2017 12:24
--- NOTE | 2017-11-09 12:25 | HHI.FF ---
Face to Face Verification Diagnosis: (1) Reactive airway disease with acute exacerbation (2) Pneumonia Physical Therapy Order: Evaluate and Treat, Improve ambulation, Strength and gait training Occupational Therapy Order: Evaluate and Treat, Improve ADL, Gross motor coordination, Fine motor coordination Home Health Nursing Order: Medical education Signs/symptoms of disease process Oxygen administration education Nursing assessment with vital signs Home Health Aide Order: To Assist In: Bathing and personal care, medication technician and meal prep I have seen patient Mireya King on 11/09/17. My clinical findings support the need for the requested home health care services because: Patient has SOB I certify that my clinical findings support that this patient is homebound because: Hx COPD- exertion dyspnea/weakness Tee Pennington DO Nov 09, 2017 12:25
[2017-11-09] MEDS: ENOXAPARIN SODIUM 30 MG/0.3 ML SYRINGE SQ SCH (15:12)
[2017-11-09] MEDS: LEVOFLOXACIN 750 MG PREMIX INJ 150 ML IV SCH (15:12)
[2017-11-09] MEDS: guaiFENesin E.R. 600 MG TAB PO SCH ×2 (15:12→20:37)
[2017-11-09] MEDS: DEXTROAMPHETAMINE/AMPHETAMINE 5 MG TAB PO SCH (15:12)
[2017-11-09] MEDS: ALPRAZolam 0.5 MG TAB PO PRN (20:37)
[2017-11-10] VITALS (12 sets, daily range): BP systolic 98–171; BP diastolic 62–84; PULSE 68–98; RESP 16–22; TEMP 97.3–98.6; O2SAT 92–97
[2017-11-10] MEDS: SODIUM CHLOR 0.9% 1000 ML INJ 1,000 ML IV SCH ×3 (00:34→22:50)
[2017-11-10] MEDS: methylPREDNISolone SOD SUCC 40 MG/1 ML VIAL IV PUSH SCH ×4 (00:34→17:14)
[2017-11-10] MEDS: RESP: ALBUTEROL 2.5 MG/IPRATROPIUM 0.5 MG NEB (SCH) INH ×4 (04:06→21:28)
[2017-11-10 06:34] LABS: AUTOMATED NEUTROPHIL # 17.1 TH/MM3 (1.8-7.7); BASOPHIL % 0.2 % (0.0-2.0); HEMATOCRIT 37.5 % (35.0-46.0); HEMOGLOBIN 12.8 GM/DL (11.6-15.3); LYMPH % 5.9 % (9.0-44.0); LYMPHOCYTE # 1.1 TH/MM3 (1.0-4.8); MEAN CELL VOLUME 88.3 FL (80.0-100.0); MEAN CORPUSCULAR HEMOGLOBIN 30.3 PG (27.0-34.0); MEAN CORPUSCULAR HGB CONC 34.3 % (32.0-36.0); MEAN PLATELET VOLUME 7.4 FL (7.0-11.0); MONO % 4.5 % (0.0-8.0); MONOCYTE # 0.9 TH/MM3 (0-0.9); NEUT % 89.4 % (16.0-70.0); PLATELET COUNT 388 TH/MM3 (150-450); RED BLOOD COUNT 4.24 MIL/MM3 (4.00-5.30); RED CELL DISTRIBUTION WIDTH 13.3 % (11.6-17.2); WHITE BLOOD COUNT 19.2 TH/MM3 (4.0-11.0)
[2017-11-10 07:05] LABS: ALBUMIN 2.4 GM/DL (3.4-5.0); AST (GOT) 65 U/L (15-37); BICARBONATE 25.4 MEQ/L (21.0-32.0); BLOOD UREA NITROGEN 15 MG/DL (7-18); CALCIUM 9.6 MG/DL (8.5-10.1); CHLORIDE 102 MEQ/L (98-107); CREATININE 0.81 MG/DL (0.50-1.00); GLOMERULAR FILTRATION RATE 72 ML/MIN (>89); GLUCOSE,RANDOM 141 MG/DL (74-106); MAGNESIUM 2.1 MG/DL (1.5-2.5); SODIUM (NA) 140 MEQ/L (136-145)
[2017-11-10 07:18] LABS: ALKALINE PHOSPHATASE 143 U/L (45-117); ALT (GPT) 58 U/L (10-53); FREE T4 1.13 NG/DL (0.76-1.46); PHOSPHORUS 2.5 MG/DL (2.5-4.9); TOTAL BILIRUBIN ADULT 0.2 MG/DL (0.2-1.0); TOTAL PROTEIN 6.9 GM/DL (6.4-8.2)
[2017-11-10] MEDS: EZETIMIBE 10 MG TAB PO SCH (08:12)
[2017-11-10] MEDS: AZITHROMYCIN 250 MG TAB PO SCH (08:12)
[2017-11-10] MEDS: SODIUM CHLORIDE 0.9% FLUSH 10 ML FLUSH IV FLUSH SCH ×2 (08:12→20:58)
[2017-11-10] MEDS: VENLAFAXINE HCL XR 37.5 MG CAP PO SCH (08:12)
[2017-11-10] MEDS: MONTELUKAST SODIUM 10 MG TAB PO SCH (08:12)
[2017-11-10] MEDS: DEXTROAMPHETAMINE/AMPHETAMINE 10 MG TAB PO SCH (08:12)
[2017-11-10] MEDS: guaiFENesin E.R. 600 MG TAB PO SCH ×2 (08:12→20:57)
[2017-11-10] MEDS: DEXTROAMPHETAMINE/AMPHETAMINE XR 30 MG CAP PO SCH ×3 (08:14→17:14)
[2017-11-10 09:08] LABS: BANDS 7 % (0-6); LYMPHOCYTES 6 % (9-44); MONOCYTES 3 % (0-8); NEUTROPHIL # MANUAL DIFF 17.5 TH/MM3 (1.8-7.7); POLYS (SEG NEUTROPHILS) 84 % (16-70)
[2017-11-10 09:09] LABS: BURR CELLS 1+ (NORMAL); TOXIC GRANULATION 1+ (NORMAL)
[2017-11-10] MEDS ORDERED: POTASSIUM CHLORIDE 20 MEQ CONTROLLED RELEASE TAB PO ONE (11:30)
--- NOTE | 2017-11-10 11:30 | HHI.PR ---
Subjective Remarks This is a 62-year-old female with no comorbidities other than history of breast cancer in remission and possible COPD who presented with shortness of breath. Patient has been in her usual state of health until 3 days ago when she started having a nonproductive cough associated with wheezing and mild shortness of breath. Shortness of breath became worse hence the patient decided to go to the emergency department today. Patient denies any fever, chills, nausea, vomiting, headache, chest pain, leg edema or palpitations. Of note, she has been visiting her grandson who has been diagnosed with a cough but was not placed on any antibiotic about 1 week ago. Patient has been smoking 3 partners of a pack for the last 45 years but has stopped 3 months ago. She has never been diagnosed with COPD though patient was placed on nebulizer as needed. She used to give herself nebulization treatments but she used up all her Nebules 2 days ago. 11-09 PATIENT STATES SHE IS BREATHING A LITTLE BETTER WANT[place]HC [place] INCENTIVE SPIROMETRY AND MUCINEX AND DUONEBS AND STEROIDS PT AND OT TO EVAL AND TREAT AM LABS 11-10 STATES BREATHING A LITTLE BETTER WILL GET HHC RN [place] NEBULIZER AT [place] WEAN OFF OXYGEN [facility] HOME TOMORROW AM LABS INCREASE ACTIVITY WILL GET WALK TEST TODAY Objective Vitals Vital Signs Date Time Temp Pulse Resp B/P (MAP) Pulse Ox O2 Delivery O2 Flow Rate FiO2 11/10/17 08:58 96 Nasal Cannula 2.00 11/10/17 08:05 97.4 89 22 155/83 (107) 95 11/10/17 06:01 98.6 69 16 128/68 (88) 96 11/10/17 04:08 92 Nasal Cannula 2.00 11/10/17 03:48 68 11/10/17 00:00 97.6 80 16 98/62 (74) 96 11/09/17 23:50 78 11/09/17 20:39 95 Nasal Cannula 3.00 11/09/17 20:00 Nasal Cannula 3.00 11/09/17 19:43 90 11/09/17 15:54 98.4 74 20 142/77 (98) 95 11/09/17 11:55 97.7 93 20 141/82 (101) 95 I/O 11/09/17 11/09/17 11/09/17 11/10/17 11/10/17/1/18 07:00 15:00 23:00 07:00 15:00 23:00 Intake Total 1000 ml 104 ml 840 ml Output Total 450 ml Balance 550 ml 104 ml 840 ml Intake Oral 840 ml IV Total 1000 ml 104 ml Output Urine Total 450 ml # Voids 3 # Bowel Movements 1 Result Diagram: 11/10/17 0430 11/10/17 0430 Other Results Laboratory Tests Test 11/08/17 09:17 11/08/17 09:30 11/09/17 06:50 11/10/17 04:30 White Blood Count 10.9 TH/MM3 11.9 TH/MM3 19.2 TH/MM3 Red Blood Count 4.30 MIL/MM3 4.20 MIL/MM3 4.24 MIL/MM3 Hemoglobin 13.1 GM/DL 12.6 GM/DL 12.8 GM/DL Hematocrit 38.1 % 37.1 % 37.5 % Mean Corpuscular Volume 88.7 FL 88.3 FL 88.3 FL Mean Corpuscular Hemoglobin 30.4 PG 30.1 PG 30.3 PG Mean Corpuscular Hemoglobin Concent 34.3 % 34.0 % 34.3 % Red Cell Distribution Width 13.4 % 13.3 % 13.3 % Platelet Count 300 TH/MM3 306 TH/MM3 388 TH/MM3 Mean Platelet Volume 7.3 FL 7.0 FL 7.4 FL Neutrophils (%) (Auto) 77.9 % 87.8 % 89.4 % Lymphocytes (%) (Auto) 8.8 % 6.8 % 5.9 % Monocytes (%) (Auto) 12.5 % 5.1 % 4.5 % Eosinophils (%) (Auto) 0.7 % 0.0 % 0.0 % Basophils (%) (Auto) 0.1 % 0.3 % 0.2 % Neutrophils # (Auto) 8.4 TH/MM3 10.5 TH/MM3 17.1 TH/MM3 Lymphocytes # (Auto) 1.0 TH/MM3 0.8 TH/MM3 1.1 TH/MM3 Monocytes # (Auto) 1.4 TH/MM3 0.6 TH/MM3 0.9 TH/MM3 Eosinophils # (Auto) 0.1 TH/MM3 0.0 TH/MM3 0.0 TH/MM3 Basophils # (Auto) 0.0 TH/MM3 0.0 TH/MM3 0.0 TH/MM3 CBC Comment DIFF FINAL AUTO DIFF AUTO DIFF Differential Comment FINAL DIFF MANUAL FINAL DIFF MANUAL Blood Urea Nitrogen 7 MG/DL 13 MG/DL 15 MG/DL Creatinine 0.56 MG/DL 0.60 MG/DL 0.81 MG/DL Random Glucose 119 MG/DL 163 MG/DL 141 MG/DL Total Protein 7.7 GM/DL 6.9 GM/DL Albumin 2.6 GM/DL 2.4 GM/DL Calcium Level 9.3 MG/DL 9.4 MG/DL 9.6 MG/DL Alkaline Phosphatase 174 U/L 143 U/L Aspartate Amino Transf (AST/SGOT) 22 U/L 65 U/L Alanine Aminotransferase (ALT/SGPT) 27 U/L 58 U/L Total Bilirubin 0.4 MG/DL 0.2 MG/DL Sodium Level 134 MEQ/L 138 MEQ/L 140 MEQ/L Potassium Level 3.3 MEQ/L 2.9 MEQ/L 3.3 MEQ/L Chloride Level 93 MEQ/L 98 MEQ/L 102 MEQ/L Carbon Dioxide Level 32.0 MEQ/L 31.7 MEQ/L 25.4 MEQ/L Anion Gap 9 MEQ/L 8 MEQ/L 13 MEQ/L Estimat Glomerular Filtration Rate 110 ML/MIN 102 ML/MIN 72 ML/MIN Urine Color YELLOW Urine Turbidity HAZY Urine pH 6.5 Urine Specific [place] 1.033 Urine Protein 300 mg/dL Urine Glucose (UA) NEG mg/dL Urine Ketones 40 mg/dL Urine Occult Blood MOD Urine Nitrite NEG Urine Bilirubin NEG Urine Urobilinogen 4.0 MG/DL Urine Leukocyte Esterase NEG Urine RBC 9 /hpf Urine WBC 7 /hpf Urine Squamous Epithelial Cells 5 /hpf Urine Bacteria RARE /hpf Urine Hyaline Casts 33 /lpf Urine Mucus MANY /lpf Microscopic Urinalysis Comment CULT NOT INDICATED Differential Total Cells Counted 100 100 Neutrophils % (Manual) 68 % 84 % Band Neutrophils % 19 % 7 % Lymphocytes % 6 % 6 % Monocytes % 5 % 3 % Neutrophils # (Manual) 10.6 TH/MM3 17.5 TH/MM3 Myelocytes 2 % Atypical Lymphocytes % Toxic Granulation 2+ 1+ Toxic Vacuolation PRESENT Platelet Estimate NORMAL NORMAL Platelet Morphology Comment NORMAL NORMAL [place] Cells 1+ Phosphorus Level 2.5 MG/DL Magnesium Level 2.1 MG/DL Free Thyroxine 1.13 NG/DL Thyroid Stimulating Hormone 3rd Gen 0.841 uIU/ML Imaging Last Impressions Chest X-Ray 11/08/17 0850 Signed Impressions: Service Date/Time: Wednesday, November 08, 2017 08:57 - CONCLUSION: Right middle lobe airspace disease suspected. Robby Prater MD Objective Remarks GENERAL: Awake alert and oriented 3 talkative and cooperative has some cough and congestion SKIN: Warm and dry. HEAD: Atraumatic. Normocephalic. EYES: Pupils equal and round. No scleral icterus. No injection or drainage. Extraocular muscles intact ENT: No nasal bleeding or discharge. Mucous membranes pink and moist. Tongue is midline NECK: Trachea midline. No JVD. Supple S1-S2 no S3 or S4 CARDIOVASCULAR: Regular rate and rhythm. RESPIRATORY: No accessory muscle use. Breath sounds equal bilaterally. LESS Rhonchi and wheezes bilaterally GASTROINTESTINAL: Abdomen soft, non-tender, nondistended. Hepatic and splenic margins not palpable. MUSCULOSKELETAL: Extremities without clubbing, cyanosis, or edema. No obvious deformities. NEUROLOGICAL: Awake and alert. No obvious cranial nerve deficits. Motor grossly within normal limits. 4 out of 5 muscle strength in the arms and legs. Normal speech. PSYCHIATRIC: Appropriate mood and affect; insight and judgment normal. Procedures NONE Medications and IVs Current Medications Sodium Chloride (NS Flush) 2 ml UNSCH PRN IVF FLUSH AFTER USING IV ACCESS Last administered on 11/08/17at 09:15; Start 11/08/17 at 09:00; Stop 11/09/17 at 09:33 ; Status DC Methylprednisolone Sodium Succinate (SoluMEDROL INJ) 125 mg ONCE ONCE IV PUSH Last administered on 11/08/17at 09:15; Start 11/08/17 at 09:00; Stop 11/08/17 at 09:01; Status DC Albuterol/ Ipratropium (Duoneb Neb) 1 ampule Q15M INH Last administered on 11/08at 09:31; Start 11/08/17 at 09:00; Stop 11/08/17 at 09:31; Status DC Sodium Chloride (NS Flush) 2 ml UNSCH PRN IV FLUSH FLUSH AFTER USING IV ACCESS ; Start 11/08/17 at 11:15 Sodium Chloride (NS Flush) 2 ml BID IV FLUSH Last administered on 11/10/17at 08: 12; Start 11/08/17 at 21:00 Azithromycin (Zithromax) 500 mg DAILY PO Last administered on 11/10/17at 08:12; Start 11/09/17 at 09:00 Levofloxacin/ Dextrose 150 ml @ 100 mls/hr Q24H IV Last administered on at 15:12; Start 11/08/17 at 12:00 Acetaminophen (Tylenol) 650 mg Q4H PRN PO TEMPERATURE > 101 F; Start 11/08/17 at 11:15 Ondansetron HCl (Zofran Inj) 4 mg Q6H PRN IV PUSH NAUSEA; Start 11/08/17 at 11: 15 Albuterol/ Ipratropium (Duoneb Neb) 1 ampule Q6HR NEB INH Last administered on 11/10/17at 08:57; Start 11/08/17 at 16:00 Albuterol/ Ipratropium (Duoneb Neb) 1 ampule Q4HR NEB PRN INH SHORTNESS OF BREATH; Start 11/08/17 at 11:15 Guaifenesin/ Dextromethorphan (Robitussin Dm 200-20 Mg/10 ml Liq) 10 ml Q4H PRN PO COUGH; Start 11/08/17 at 11:15; Status Cancel Enoxaparin Sodium (Lovenox Inj) 30 mg Q24H SQ Last administered on 11/09/17at 15 :12; Start 11/08/17 at 12:00 Sodium Chloride 1,000 ml @ 84 mls/hr [id number] IV Last administered on 11/10/17at 08:14; Start 11/08/17 at 11:15 Potassium Bicarb/ Potassium Chloride (K-Lyte Cl Eff) 50 meq ONCE ONCE PO Last administered on 11/08/17at 13:53; Start 11/08/17 at 11:15; Stop 11/08/17 at 11:25; Status DC Methylprednisolone Sodium Succinate (SoluMEDROL INJ) 40 mg Q6HR IV PUSH Last administered on 11/10/17at 05:23; Start 11/08/17 at 12:00 Alprazolam (Xanax) 0.5 mg HS PRN PO ANXIETY Last administered on 11/09/17at 20: 37; Start 11/08/17 at 18:30 Amphetamine/ Dextroamphetamine (Adderall) 10 mg DAILY PO Last administered on 08:12; Start 11/09/17 at 09:00 Amphetamine/ Dextroamphetamine (Adderall Xr) 30 mg TID PO Last administered on 11/10/17 08:14; Start 11/09/17 at 09:00 EZETIMIBE (Zetia) 10 mg DAILY PO Last administered on 11/10/17 08:12; Start at 09:00 Montelukast Sodium (Singulair) 10 mg DAILY PO Last administered on 11/10/17at 08: 12; Start 11/09/17 at 09:00 Venlafaxine HCl (Effexor Xr) 37.5 mg DAILY PO Last administered on 11/10/17 08: 12; Start 11/09/17 at 09:00 Patient Own Medication 100 ea DAILY PO ; Start 11/09/17 at 09:00; Status Future Hold Patient Own Medication PT OWN MED: Buprenorphine-Naloxon... BID SL ; Start 11/08 at 21:00; Status Future Hold Amphetamine/ Dextroamphetamine (Adderall) 5 mg DAILY@1200 PO Last administered on 11/09/17at 15:12; Start 11/09/17 at 12:00 Magnesium Sulfate 2 gm/Sodium Chloride 104 ml @ 52 mls/hr ONCE ONCE IV Last administered on 11/09/17 09:03; Start 11/09/17 at 09:00; Stop 11/09/17 at 10:59 ; Status DC Potassium Chloride (KCl) 80 meq ONCE ONCE PO Last administered on 11/09/17at 10 :39; Start 11/09/17 at 09:45; Stop 11/09/17 at 09:46; Status DC Guaifenesin (Mucinex Er) 1,200 mg BID PO Last administered on 11/10/17at 08:12; Start 11/09/17 at 13:00 A/P Assessment and Plan This is a 62-year-old female with questionable history of COPD presenting with shortness of breath, chest x-ray shows right middle lobe infiltrates. Acute hypoxic respiratory failure secondary to community-acquired pneumonia and COPD exacerbation-no leukocytosis, patient has a new cough, which shortness of breath and hypoxia, requiring oxygen, chest x-ray personally reviewed showed right middle lobe infiltrate likely secondary to pneumonia. Start Levaquin, check sputum culture, follow-up blood culture, rapid flu negative, start duo nebs around the clock and as needed. ADD ZITHROMAX AND MUCINEX AND STEROID AND INCENTIVE SPIROMETRY CONSULT PT AND OT Acute COPD exacerbation-start steroids, tapered quickly. DuoNeb's as above. Oxygen supplementation, antitussives WEAN OFF OXYGEN Mild dehydration-will give 1 L of normal saline Hypokalemia-will give 1 dose of potassium supplementation - WILL GIVE MORE - WILL REPLACE AGAIN ON 5-1 WALK TEST TODAY TO SEE IF NEEDS HOME OXYGEN CHECK AM LABS DVT prophylaxis: Lovenox Discharge Planning PENDING BREATHING IMPROVEMENT WEAN OFF OXYGEN Tee Pennington DO November 10, 2017 11:30
[2017-11-10] MEDS: DEXTROAMPHETAMINE/AMPHETAMINE 5 MG TAB PO SCH (12:58)
[2017-11-10] MEDS: LEVOFLOXACIN 750 MG PREMIX INJ 150 ML IV SCH (12:58)
[2017-11-10] MEDS: ENOXAPARIN SODIUM 30 MG/0.3 ML SYRINGE SQ SCH (12:58)
[2017-11-10 16:54] LABS: HEMOGLOBIN A1C 5.9 % (4.3-6.0)
[2017-11-10] MEDS: IBUPROFEN 600 MG TAB PO PRN (18:25)
[2017-11-10] MEDS: METHOCARBAMOL 500 MG TAB PO PRN (20:57)
[2017-11-10] MEDS: ALPRAZolam 0.5 MG TAB PO PRN (20:57)
[2017-11-11] VITALS: BP 165/54; PULSE 97; RESP 20; TEMP 97.5; O2SAT 95
[2017-11-11] MEDS: methylPREDNISolone SOD SUCC 40 MG/1 ML VIAL IV PUSH SCH ×3 (00:27→12:24)
[2017-11-11] MEDS: IBUPROFEN 600 MG TAB PO PRN ×3 (00:28→12:23)
[2017-11-11 03:52] VITALS: PULSE 79
[2017-11-11 04:00] VITALS: BP 162/78; PULSE 96; RESP 20; TEMP 97.6; O2SAT 94
[2017-11-11] MEDS: RESP: ALBUTEROL 2.5 MG/IPRATROPIUM 0.5 MG NEB (SCH) INH ×2 (04:14→08:14)
[2017-11-11] MEDS: METHOCARBAMOL 500 MG TAB PO PRN (04:50)
[2017-11-11] MEDS: SODIUM CHLOR 0.9% 1000 ML INJ 1,000 ML IV SCH (06:12)
[2017-11-11 08:00] VITALS: BP 167/77; PULSE 86; RESP 19; TEMP 97.4; O2SAT 96
[2017-11-11 08:14] VITALS: O2SAT 90
[2017-11-11 08:20] LABS: AUTOMATED NEUTROPHIL # 12.5 TH/MM3 (1.8-7.7); BASOPHIL % 0.1 % (0.0-2.0); EOSINOPHIL # 0.1 TH/MM3 (0-0.4); EOSINOPHIL % 0.7 % (0.0-4.0); HEMATOCRIT 37.4 % (35.0-46.0); HEMOGLOBIN 12.7 GM/DL (11.6-15.3); LYMPH % 5.3 % (9.0-44.0); LYMPHOCYTE # 0.7 TH/MM3 (1.0-4.8); MEAN CELL VOLUME 88.6 FL (80.0-100.0); MEAN CORPUSCULAR HGB CONC 33.9 % (32.0-36.0); MEAN PLATELET VOLUME 6.8 FL (7.0-11.0); MONO % 3.6 % (0.0-8.0); MONOCYTE # 0.5 TH/MM3 (0-0.9); NEUT % 90.3 % (16.0-70.0); PLATELET COUNT 394 TH/MM3 (150-450); RED BLOOD COUNT 4.22 MIL/MM3 (4.00-5.30); RED CELL DISTRIBUTION WIDTH 13.9 % (11.6-17.2); WHITE BLOOD COUNT 13.9 TH/MM3 (4.0-11.0)
[2017-11-11 08:51] LABS: ALBUMIN 2.6 GM/DL (3.4-5.0); ALKALINE PHOSPHATASE 124 U/L (45-117); ALT (GPT) 57 U/L (10-53); AST (GOT) 48 U/L (15-37); BICARBONATE 28.9 MEQ/L (21.0-32.0); BLOOD UREA NITROGEN 16 MG/DL (7-18); CHLORIDE 102 MEQ/L (98-107); CREATININE 0.65 MG/DL (0.50-1.00); GLOMERULAR FILTRATION RATE 93 ML/MIN (>89); GLUCOSE,RANDOM 123 MG/DL (74-106); MAGNESIUM 2.1 MG/DL (1.5-2.5); PHOSPHORUS 3.4 MG/DL (2.5-4.9); SODIUM (NA) 138 MEQ/L (136-145); TOTAL BILIRUBIN ADULT 0.3 MG/DL (0.2-1.0); TOTAL PROTEIN 6.6 GM/DL (6.4-8.2)
[2017-11-11] MEDS: MONTELUKAST SODIUM 10 MG TAB PO SCH (08:51)
[2017-11-11] MEDS: AZITHROMYCIN 250 MG TAB PO SCH (08:51)
[2017-11-11] MEDS: VENLAFAXINE HCL XR 37.5 MG CAP PO SCH (08:51)
[2017-11-11] MEDS: guaiFENesin E.R. 600 MG TAB PO SCH (08:51)
[2017-11-11] MEDS: SODIUM CHLORIDE 0.9% FLUSH 10 ML FLUSH IV FLUSH SCH (08:51)
[2017-11-11] MEDS: DEXTROAMPHETAMINE/AMPHETAMINE 10 MG TAB PO SCH (08:51)
[2017-11-11] MEDS: DEXTROAMPHETAMINE/AMPHETAMINE XR 30 MG CAP PO SCH ×2 (08:51→12:24)
[2017-11-11] MEDS: EZETIMIBE 10 MG TAB PO SCH (08:52)
[2017-11-11 09:19] LABS: BANDS 9 % (0-6); LYMPHOCYTES 2 % (9-44); MONOCYTES 2 % (0-8); MYELOCYTES 1 % (0-0); NEUTROPHIL # MANUAL DIFF 13.3 TH/MM3 (1.8-7.7); POLYS (SEG NEUTROPHILS) 86 % (16-70); TOXIC GRANULATION 2+ (NORMAL)
[2017-11-11 09:20] LABS: OVALOCYTES 1+ (NORMAL); TOXIC VACUOLATION PRESENT (NONE SEEN)
[2017-11-11] MEDS ORDERED: ACETAMINOPHEN/HYDROcodone 325 MG/10 MG TAB PO PRN (10:00)
[2017-11-11] MEDS ORDERED: AZIT250T3 PO (10:03)
[2017-11-11] MEDS ORDERED: HYDR-3583 PO (10:03)
[2017-11-11] MEDS ORDERED: LEVA750T9 PO (10:03)
[2017-11-11] MEDS ORDERED: METH500T3 PO (10:03)
[2017-11-11] MEDS ORDERED: PRED20 PO (10:03)
[2017-11-11] MEDS ORDERED: guaiFENesin ER PO (10:03)
--- NOTE | 2017-11-11 10:13 | HHI.DS ---
Discharge Summary Admission Date Nov 08, 2017 at 11:13 Discharge Date: November 11, 2017 Admitting Diagnosis Pneumonia. Acute exacerbation reactive airway disease. Hypoxemia. (1) Pneumonia ICD Code: J18.9 - Pneumonia, unspecified organism Status: Acute (2) Reactive airway disease with acute exacerbation ICD Code: J45.901 - Unspecified asthma with (acute) exacerbation Status: Acute Procedures NONE Brief History - From Admission This is a 62-year-old female with no comorbidities other than history of breast cancer in remission and possible COPD who presented with shortness of breath. Patient has been in her usual state of health until 3 days ago when she started having a nonproductive cough associated with wheezing and mild shortness of breath. Shortness of breath became worse hence the patient decided to go to the emergency department today. Patient denies any fever, chills, nausea, vomiting, headache, chest pain, leg edema or palpitations. Of note, she has been visiting her grandson who has been diagnosed with a cough but was not placed on any antibiotic about 1 week ago. Patient has been smoking 3 partners of a pack for the last 45 years but has stopped 3 months ago. She has never been diagnosed with COPD though patient was placed on nebulizer as needed. She used to give herself nebulization treatments but she used up all her Nebules 2 days ago. CBC/BMP: 11/11/17 0729 11/11/17 0729 Significant Findings Laboratory Tests Test 11/09/17 06:50 11/10/17 04:30 11/11/17 07:29 White Blood Count 11.9 TH/MM3 (4.0-11.0) 19.2 TH/MM3 (4.0-11.0) 13.9 TH/MM3 (4.0-11.0) Neutrophils (%) (Auto) 87.8 % (16.0-70.0) 89.4 % (16.0-70.0) 90.3 % (16.0-70.0) Lymphocytes (%) (Auto) 6.8 % (9.0-44.0) 5.9 % (9.0-44.0) 5.3 % (9.0-44.0) Neutrophils # (Auto) 10.5 TH/MM3 (1.8-7.7) 17.1 TH/MM3 (1.8-7.7) 12.5 TH/MM3 (1.8-7.7) Lymphocytes # (Auto) 0.8 TH/MM3 (1.0-4.8) 0.7 TH/MM3 (1.0-4.8) Band Neutrophils % 19 % (0-6) 7 % (0-6) 9 % (0-6) Lymphocytes % 6 % (9-44) 6 % (9-44) 2 % (9-44) Neutrophils # (Manual) 10.6 TH/MM3 (1.8-7.7) 17.5 TH/MM3 (1.8-7.7) 13.3 TH/MM3 (1.8-7.7) Myelocytes 2 % (0-0) 1 % (0-0) Toxic Granulation 2+ (NORMAL) 1+ (NORMAL) 2+ (NORMAL) Toxic Vacuolation PRESENT (NONE SEEN) PRESENT (NONE SEEN) Random Glucose 163 MG/DL (74-106) 141 MG/DL (74-106) 123 MG/DL (74-106) Potassium Level 2.9 MEQ/L (3.5-5.1) 3.3 MEQ/L (3.5-5.1) Neutrophils % (Manual) 84 % (16-70) 86 % (16-70) [place] Cells 1+ (NORMAL) Albumin 2.4 GM/DL (3.4-5.0) 2.6 GM/DL (3.4-5.0) Alkaline Phosphatase 143 U/L (45-117) 124 U/L (45-117) Aspartate Amino Transf (AST/SGOT) 65 U/L (15-37) 48 U/L (15-37) Alanine Aminotransferase (ALT/SGPT) 58 U/L (10-53) 57 U/L (10-53) Estimat Glomerular Filtration Rate 72 ML/MIN (>89) Mean Platelet Volume 6.8 FL (7.0-11.0) Ovalocytes 1+ (NORMAL) PE at Discharge GENERAL: Awake alert and oriented 3 talkative and cooperative has some cough and congestion SKIN: Warm and dry. HEAD: Atraumatic. Normocephalic. EYES: Pupils equal and round. No scleral icterus. No injection or drainage. Extraocular muscles intact ENT: No nasal bleeding or discharge. Mucous membranes pink and moist. Tongue is midline NECK: Trachea midline. No JVD. Supple S1-S2 no S3 or S4 CARDIOVASCULAR: Regular rate and rhythm. RESPIRATORY: No accessory muscle use. Breath sounds equal bilaterally. LESS Rhonchi and wheezes bilaterally GASTROINTESTINAL: Abdomen soft, non-tender, nondistended. Hepatic and splenic margins not palpable. MUSCULOSKELETAL: Extremities without clubbing, cyanosis, or edema. No obvious deformities. NEUROLOGICAL: Awake and alert. No obvious cranial nerve deficits. Motor grossly within normal limits. 4 out of 5 muscle strength in the arms and legs. Normal speech. PSYCHIATRIC: Appropriate mood and affect; insight and judgment normal. Pt update on day of discharge Shortness of breath a lot better, on room air, however complaining of left hip pain, there was history of spasms in August. No trauma was in the hospital, no history of fall. Will check hip x-ray. Hospital Course This is a 62-year-old female with questionable history of COPD presenting with shortness of breath, chest x-ray shows right middle lobe infiltrates. Patient was found to have acute hypoxic respiratory failure secondary to community- acquired pneumonia with COPD exacerbation. The patient was started on Levaquin , azithromycin was added. Workup was negative, sputum culture was negative, blood culture and rapid flu were negative. Patient while in the hospital complaint of left hip pain, left hip x-ray was done. Patient's respiratory status improved, on the day of discharge, patient was on room air. She will be discharged on Levaquin, azithromycin and steroids. Pt Condition on Discharge: Good Discharge Disposition: Discharge Home Discharge Instructions DIET: Follow Instructions for: Heart Healthy Diet Activities you can perform: Regular-No Restrictions Al Reese MD November 11, 2017 10:13
[2017-11-11 12:00] VITALS: BP 167/100; PULSE 86; RESP 21; TEMP 98.6; O2SAT 96
[2017-11-11] MEDS: ENOXAPARIN SODIUM 30 MG/0.3 ML SYRINGE SQ SCH (12:24)
[2017-11-11] MEDS: DEXTROAMPHETAMINE/AMPHETAMINE 5 MG TAB PO SCH (12:24)
--- NOTE | 2017-11-11 13:50 | RADRPT ---
EXAM DATE/TIME: 11/11/2017 12:43 [facility] COMPARISON: HIP LEFT (AP&LAT 2/3VWS) W AP PELVIS, August 28, 2017, 15:22. INDICATIONS : Left hip pain after twisting while getting out of bed yesterday. Sprain to hip in Aug. MEDICAL HISTORY : Carcinoma, breast SURGICAL HISTORY : None. ENCOUNTER: Subsequent ACUITY: 4 - 6 days PAIN SCORE: 10/10 LOCATION: Left hip. FINDINGS: Examination of the left hip was performed with AP Pelvis. The primary and secondary trabecular patte rn of the femoral neck is intact. The hip joint is of normal width without significant sclerosis or bony hypertrophy. The acetabulum is grossly intact. CONCLUSION: No acute disease. No significant change has occurred. Les Christensen MD on November 11, 2017 at 13:47 Board Certified Radiologist. This report was verified electronically.
[2017-11-11] MEDS ORDERED: predniSONE 20 MG TAB PO SCH (21:00)
[2017-11-12] MEDS ORDERED: LEVOFLOXACIN 750 MG TAB PO SCH (09:00)
== END 2017-11-11 16:56 | disposition home or self-care (01) | DRG 193 ==
LOC: NEPC 07:38 → NEDA 11:13 → N04B 11:55
PROVIDERS: ADMIT Hospitalist; ATTEND Hospitalist
DX: J18.9 Pneumonia, unspecified organism (principal); J96.01 Acute respiratory failure with hypoxia; J44.0 Chronic obstructive pulmonary disease with (acute) lower respiratory infection; J44.1 Chronic obstructive pulmonary disease with (acute) exacerbation; J45.51 Severe persistent asthma with (acute) exacerbation; E86.0 Dehydration; E87.6 Hypokalemia; F17.200 Nicotine dependence, unspecified, uncomplicated; Z85.3 Personal history of malignant neoplasm of breast; Z90.10 Acquired absence of unspecified breast and nipple; F32.9 Major depressive disorder, single episode, unspecified; F41.9 Anxiety disorder, unspecified; M25.552 Pain in left hip; F90.9 Attention-deficit hyperactivity disorder, unspecified type
CPT/HCPCS: 71045; 73502; 80048; 80053; 81001; 83036; 83735; 84100; 84439; 84443; 85007; 85025; 85027; 87040; 87070; 87205; 87804; 93005; 94150; 94640; 94664; 96374; J1650; J1956; J2920; J2930; J3475; J7030